=== PATIENT | female | born 1975 | race Caucasian/White ===

== ENCOUNTER 2016-08-08 15:27 | Emergency (ER) | payer MEDICAID, OTHER ==
[2016-08-08] MEDS ORDERED: NS 1,000 ML IV ONE ×2 (16:07→23:34)
--- NOTE | 2016-08-08 16:10 | EDPHY ---
H & P Stated Complaint: Suicidal ideation. Source: Patient Exam Limitations: No limitations - Personal History LMP (Females 10-55): 1-7 Days Ago Current Tetanus Diphtheria and Acellular Pertussis (TDAP): No - Medical/Surgical History Hx Asthma: No Hx Chronic Respiratory Disease: No Hx Diabetes: No Hx Cardiac Disease: No Hx Renal Disease: Yes Hx Cirrhosis: No Hx Alcoholism: Yes Hx HIV/AIDS: No Hx Splenectomy or Spleen Trauma: No Other PMH: HTN , KIDNEY STONES AND PYLO - Social History Smoking Status: Heavy smoker Time Seen by Provider: 08/08/16 16:07 HPI/ROS: HPI: 41-year-old transient female presents to emergency department brought in on M1 hold by Michelle GALE with chief concern suicidal ideation and alcohol withdrawal. Last drink 11 o'clock this morning. States "I am going to hang myself." Reports previous suicide attempts. Reports auditory hallucination. Denies visual hallucination. Denies homicidal ideation. Denies fever, chills, head trauma, URI symptoms, shortness of breath, chest pain, abdominal pain, nausea, vomiting, diarrhea. Used opiates and meth 5 days ago. Prescribed Suboxone but has not yet filled. Past medical history notable for bipolar 2, suicide attempt, polysubstance abuse, pyelonephritis, kidney stones, hypertension. Home medications include Zestril 40 mg daily. Reports a history of alcohol withdrawal seizures. ROS:10 point review of systems is negative other than as stated in HPI (Catherine Thornton) - Social History Additional Social History: Transient (Catherine Thornton) - Physical Exam Exam: Vital signs reviewed by me General: Awake, alert, calm, cooperative. No acute distress. Head: Normalocephalic. Atraumatic. EENT: PERRLA. EOMI. No pallor or injection. Anicteric. No nystagmus. No injection. TMs intact bilaterally with normal landmarks. No rhinnorhea, nasal passages clear. Oropharynx without redness, exudates, or lesions. Tonsils 2+ bilaterally, no exudates. Neck: Supple, nontender. No lymphadenopathy. Full range of motion. No meningismus. Respiratory: Breathing unlabored. Breath sounds equal bilaterally and clear to auscultation. No adventitious sounds. CV: Chest nontender, atraumatic. Heart rate regular. No murmur, distal pulses 2+ bilaterally. Brisk cap refill all extremities. GI: Abdomen soft, nontender. Bowel sounds normoactive and positive x4 quadrants. : No suprapubic tenderness. No CVA or flank tenderness. Neuro: Alert. Oriented x 3. Speech clear. Nonfocal cranial nerves throughout. Sensation intact all extremities. No tongue fasciculations. Positive hand tremors. Skin: Skin warm, dry, intact. No rashes, abrasions, or lacerations. Skin turgor normal. Extremities: Full range of motion in all 4 extremities. Strength 5+ all extremities. Mental status: Disheveled, fidgety, agitated (Brown,Catherine K) Constitutional: Initial Vital Signs Temperature (C) 36.7 C 08/08/16 15:35 Heart Rate 102 H 08/08/16 15:35 Respiratory Rate 16 08/08/16 15:35 Blood Pressure 140/108 H 08/08/16 15:35 O2 Sat (%) 96 08/08/16 15:35 O2 Delivery Mode Room Air Allergies/Adverse Reactions: NSAIDS (Non-Steroidal Anti-Inflamma Allergy (Verified 03/31/16 03:13) Home Medications: Medication Instructions Recorded Lisinopril [Zestril 40 mg (*)] 40 mg PO DAILY 03/31/16 Buprenorphine HCl/Naloxone HCl 3 each SL DAILY 08/08/16 [Suboxone 2 mg-0.5 mg Sl Film] lamoTRIgine [LamICTAL] 25 mg PO HS 08/10/16 traZODone [traZODONE 100MG (*)] 100 mg PO HS 08/10/16 Medical Decision Making ED Course/Re-evaluation: 1610:41-year-old female presents to emergency department on M1 hold by [facility] for suicidal ideation alcohol withdrawal. Last drink 11 o'clock today. [place] presently 14. Patient confirms previous alcohol withdrawal seizures. Confirms previous inpatient hospitalization at [facility] for detox as well as for suicidal ideation in other states. IV started. Normal saline hung. 1 mg IV Ativan ordered. Labs and urine are pending. [facility] protocol ordered. Patient given 40 mg lisinopril as this is her daily medication and she has not taken it today. 1730: White count 5460. CO2 18. AG 20. Glucose 60. Beta HCG negative. ETOH 367. Patient is alert and oriented. [facility] presently 8. Patient sitting in bed comfortably eating. 1820: Care of this patient transferred to my colleague Dr. Tayo Tirado. (Catherine Thornton) 9:15 p.m. blood alcohol 157 (Tayo Tirado) [id number]: I did see and evaluate this patient multiple times this evening she was tachycardic and her tachycardia is improved with IV Ativan multiple doses. She did receive total 4 mg overnight. She did receive also 1 L normal saline fluid. She feels much better. Her tachycardia has come down. On hand extension she has no significant tremors, she is not nauseous she is not vomiting she is not diaphoretic she does not have any tongue fasciculations. She will need to be watched further for possible alcohol withdrawal. She will need to be on CIWA, Closely monitored. Nursing staff updated and patient signed over to Dr. Rasmussen at 7am. This patient also received 25 mg p.o. Librium. 0554AM: 08/10/16: No acute events overnight. Patient resting. Re-evaluated this time, cooperative. Still pending placement. Patient signed over to Dr. Rasmussen at 7am. (Roderick Russo) Differential Diagnosis: Differential includes but is not limited to functional and major depression, situational depression, medication side-effect, anxiety, schizophrenia, bipolar , drug or alcohol related, acute psychosis, metabolic derangement, infection ( Catherine Thornton) Other Provider: 3:00 p.m. patient's care transferred to tx. Patient has been medically cleared prior to my arrival and is on an M1 hold waiting placement for suicidal ideations. She has a history of alcoholism and is currently going through withdrawals. She has been treated appropriately with benzodiazepines. She has been evaluated by Mental Health and we are currently awaiting psychiatric placement. 6:45 p.m. the patient is again having mild tremors. Will treat her for Ativan and Librium. Otherwise her symptoms have been well controlled. We continue to await placement. 10:00 p.m. the patient is sleeping comfortably. No sign of withdrawal symptoms. I will transfer care to Dr. Roderick Russo shift change. (Ayush Trivedi) I assumed care of patient at 0700. At 0900, was informed by Mental Health that they are looking for placement and that patient should remain on M1 hold. ( Tomi Rasmussen) Care Turn Over: Care to Dr. Russo at 2300 (Tayo Tirado) At 1250, mental health informed me that their evaluation is complete and they recommend the hold be lifted and patient be cabbed back to the care of her supportive family in [place]. (Tomi Rasmussen) - Data Points Laboratory Results: Laboratory Results 08/08/16 16:15 08/08/16 16:15 Medications Given: Discontinued Medications Chlordiazepoxide HCl (Librium) 25 mg PO EDNOW ONE Stop: 08/09/16 04:27 Last Admin: 08/09/16 04:36 Dose: 25 mg Chlordiazepoxide HCl (Librium) 25 mg PO EDNOW ONE Stop: 08/09/16 09:49 Last Admin: 08/09/16 09:53 Dose: 25 mg Chlordiazepoxide HCl (Librium) 25 mg PO EDNOW ONE Stop: 08/09/16 14:52 Last Admin: 08/09/16 14:57 Dose: 25 mg Chlordiazepoxide HCl (Librium) 25 mg PO EDNOW ONE Stop: 08/09/16 18:53 Last Admin: 08/09/16 19:07 Dose: 25 mg Chlordiazepoxide HCl (Librium) 25 mg PO EDNOW ONE Stop: 08/10/16 08:04 Last Admin: 08/10/16 08:21 Dose: 25 mg Chlordiazepoxide HCl (Librium) 25 mg PO EDNOW ONE Stop: 08/10/16 11:41 Last Admin: 08/10/16 11:43 Dose: 25 mg Sodium Chloride (Ns) 1,000 mls @ 0 mls/hr IV EDNOW ONE PRN Reason: Wide Open Stop: 08/08/16 16:08 Last Admin: 08/08/16 16:10 Dose: 1,000 mls Sodium Chloride (Ns) 1,000 mls @ 0 mls/hr IV ONCE ONE PRN Reason: Wide Open Stop: 08/08/16 23:35 Last Admin: 08/08/16 23:52 Dose: 1,000 mls Lisinopril (Zestril) 40 mg PO EDNOW ONE Stop: 08/08/16 16:14 Last Admin: 08/08/16 18:16 Dose: 40 mg Lisinopril (Zestril) 40 mg PO EDNOW ONE Stop: 08/09/16 12:42 Last Admin: 08/09/16 13:05 Dose: 40 mg Lisinopril (Zestril) 40 mg PO EDNOW ONE Stop: 08/10/16 08:25 Last Admin: 08/10/16 08:28 Dose: 40 mg Lorazepam (Ativan Injection) 1 mg IVP EDNOW ONE Stop: 08/08/16 16:13 Last Admin: 08/08/16 18:16 Dose: 1 mg Lorazepam (Ativan Injection) 1 mg IVP EDNOW ONE Stop: 08/08/16 23:35 Last Admin: 08/08/16 23:52 Dose: 1 mg Lorazepam (Ativan Injection) 2 mg IVP EDNOW ONE Stop: 08/09/16 03:48 Last Admin: 08/09/16 04:03 Dose: 2 mg Lorazepam (Ativan) 1 mg PO EDNOW ONE Stop: 08/09/16 09:49 Last Admin: 08/09/16 09:53 Dose: 1 mg Lorazepam (Ativan) 1 mg PO EDNOW ONE Stop: 08/09/16 14:52 Last Admin: 08/09/16 14:58 Dose: 1 mg Lorazepam (Ativan) 1 mg PO EDNOW ONE Stop: 08/09/16 18:53 Last Admin: 08/09/16 19:07 Dose: 1 mg Departure - Departure Disposition: Home, Routine, Self-Care Clinical Impression: Suicide ideation Alcohol withdrawal Qualifiers: Complication of substance-induced condition: uncomplicated Qualified Code(s): F10.230 - Alcohol dependence with withdrawal, uncomplicated Condition: Good Instructions: Suicide Prevention for Adults (ED) Additional Instructions: Follow-up with your mental health provider as directed. Return to the ED for thoughts of self-harm, racing thoughts or other concerns. Referrals: NONE *PRIMARY CARE P,. [Primary Care Provider] - As per Instructions
[2016-08-08] MEDS ORDERED: LORazepam 2 MG/ML INJ IVP ONE ×2 (16:12→23:34)
[2016-08-08] MEDS ORDERED: LISINOPRIL 20 MG TAB PO ONE (16:13)
[2016-08-08 16:25] LABS: % IMMATURE GRANULYOCYTES 0.2 % (0.0-1.1); ABSOLUTE IMMATURE GRANULOCYTES 0.01 10^3/uL (0.00-0.10); ADD DIFF? NO; ADD MORPH? NO; ADD SCAN? NO; ATYPICAL LYMPHOCYTE FLAG 0 (0-99); FRAGMENT RBC FLAG 20 (0-99); HEMATOCRIT 36.8 % (38.0-47.0); HEMOGLOBIN 11.6 g/dL (12.6-16.3); LEFT SHIFT FLG 0 (0-99); LIPEMIA HEMOLYSIS FLAG 80 (0-99); MEAN CELL HEMOGLOBIN 25.4 pg (27.9-34.1); MEAN CELL HEMOGLOBIN CONCENTR. 31.5 g/dL (32.4-36.7); MEAN CELL VOLUME 80.5 fL (81.5-99.8); MEAN PLATELET VOLUME 8.8 fL (8.7-11.7); PLATELET CLUMPS FLAG 10 (0-99); PLATELET COUNT 378 10^3/uL (150-400); RED BLOOD CELL COUNT 4.57 10^6/uL (4.18-5.33); RED CELL DISTRIBUTION WIDTH 19.5 % (11.5-15.2)
[2016-08-08 16:44] LABS: ANION GAP 20 mEq/L (8-16); CALCIUM 8.8 mg/dL (8.5-10.4); CARBON DIOXIDE 18 mEq/l (22-31); CHLORIDE 105 mEq/L (97-110); CREATININE 0.7 mg/dL (0.6-1.0); GLOMERULAR FILTRATION RATE > 60; GLUCOSE 60 mg/dL (70-100); POTASSIUM 4.3 mEq/L (3.5-5.2); SODIUM 143 mEq/L (134-144)
[2016-08-08 17:07] LABS: ETHANOL SERUM 367 mg/dL (0-10)
[2016-08-08] MEDS ORDERED: LORazepam 2 MG/ML INJ ONE (23:35)
[2016-08-09] MEDS ORDERED: LORazepam 2 MG/ML INJ IVP ONE (03:47)
[2016-08-09] MEDS ORDERED: chlordiazePOXIDE 25 MG CAP PO ONE ×4 (04:26→18:52)
[2016-08-09] MEDS ORDERED: LORazepam 1 MG TAB PO ONE ×3 (09:48→18:52)
[2016-08-09] MEDS ORDERED: LISINOPRIL 20 MG TAB PO ONE (12:41)
[2016-08-10] MEDS ORDERED: chlordiazePOXIDE 25 MG CAP PO ONE ×2 (08:03→11:40)
[2016-08-10] MEDS ORDERED: LISINOPRIL 20 MG TAB PO ONE (08:24)
[2016-08-10] MEDS ORDERED: chlordiazePOXIDE 25 MG CAP ONE (11:41)
[2016-08-10 13:37] VITALS: BP 148/95; PULSE 94; RESP 17; TEMP 98.2; O2SAT 95
== END 2016-08-10 13:36 | disposition home or self-care (01) ==
DX: R45.851 Suicidal ideations (principal); F10.230 Alcohol dependence with withdrawal, uncomplicated; I10 Essential (primary) hypertension; F17.200 Nicotine dependence, unspecified, uncomplicated
CPT/HCPCS: 80305; 96374; G0480; J2060

== ENCOUNTER 2016-09-08 15:21 | Emergency (ER) | payer MEDICAID ==
[~2016-09-08 15:21] MED LIST: LISINOPRIL 40 MG TAB PO SCH
--- NOTE | 2016-09-08 15:29 | EDPHY ---
H & P - Medical/Surgical History Hx Asthma: No Hx Chronic Respiratory Disease: No Hx Diabetes: No Hx Cardiac Disease: No Hx Renal Disease: Yes Hx Cirrhosis: No Hx Alcoholism: Yes Hx HIV/AIDS: No Hx Splenectomy or Spleen Trauma: No Other PMH: HTN , KIDNEY STONES AND PYLO - Social History Smoking Status: Heavy smoker Constitutional: Initial Vital Signs Temperature (C) 36.8 C 09/08/16 15:30 Heart Rate 87 09/08/16 15:30 Respiratory Rate 18 09/08/16 15:30 Blood Pressure 164/105 H 09/08/16 15:30 O2 Sat (%) 95 09/08/16 15:30 O2 Delivery Mode Room Air Allergies/Adverse Reactions: aripiprazole [From Abilify] Allergy (Verified 09/08/16 15:33) hydrocodone Allergy (Verified 09/08/16 15:33) NSAIDS (Non-Steroidal Anti-Inflamma Allergy (Verified 09/08/16 15:33) Home Medications: Medication Instructions Recorded Lisinopril [Zestril 40 mg (*)] 40 mg PO DAILY 03/31/16 Lisinopril [Zestril 40 mg (*)] 40 mg PO DAILY #4 tab 09/08/16 SUBOXONE 2 MG-0.5 MG TABLET 09/08/16 Medical Decision Making ED Course/Re-evaluation: CHIEF COMPLAINT: Dizziness, headache. HISTORY OF PRESENT ILLNESS: The patient is a 41-year-old female with a history of hypertension who presents via EMS for 3 days of headache, dizziness, and pedal edema. She took her blood pressure just prior to arrival and noted it high so EMS was notified. She stopped taking her Lisinopril after she started Suboxone and has been compliant with all of her recent doses of this. She admits associated intermittent chest pressure. These are the symptoms she usually gets when her blood pressure gets high. She denies abdominal pain, vomiting, diarrhea, or other complaints. REVIEW OF SYSTEMS: A 10 point review of systems was performed and is negative with the exception of the elements mentioned in the history of present illness. PHYSICAL EXAM: HR, BP, O2 Sat, RR. Temp noted General Appearance: Alert, well hydrated, appropriate, and non-toxic appearing. Head: Atraumatic without scalp tenderness or obvious injury Eyes: Pupils equal, round, reactive to light and accommodation, EOMI, no trauma , no injection. Pinpoint pupils. Ears: Clear bilaterally, no perforation, normal landmarks Nose: Atraumatic, no rhinorrhea, clear. Throat: There is no erythema or exudates, no lesions, normal tonsils, mucus membranes moist. Neck: Supple, 2+ carotid upstroke, nontender, no lymphadenopathy. Respiratory: No retractions, no distress, no wheezes, and no accessory muscle use. Lungs are clear to auscultation bilaterally. Cardiovascular: Regular rate and rhythm, no murmurs, rubs, or gallops. Bilateral carotid, radial, dorsalis pedis, and posterior tibial pulses intact. Good capillary refill all extremities. Gastrointestinal: Abdomen is soft, nontender, non-distended, no masses, no rebound, no guarding, no peritoneal signs. Musculoskeletal: Normal active ROM of all extremities, atraumatic. Neurological: Alert, appropriate, and interactive. The patient has normal DTRs and non-focal cranial nerves, motor, sensory, and cerebellar exam. Skin: No rashes, good turgor, no nodules on palpation. Past medical history: Hypertension, kidney stones, pyelonephritis. Past surgical history: Denies. Social history: . DIAGNOSTICS/PROCEDURES/CRITICAL CARE TIME: The 12 lead EKG was interpreted by myself. See hard copy and/or "tracemaster" electronic copy for interpretation. Sinus rhythm. No ischemic changes. DIFFERENTIAL DIAGNOSIS: The differential diagnosis for the patient's dizziness included but was not limited to peripheral and central causes of vertigo, orthostatic causes including dehydration, cardiogenic and neurogenic causes, and blood loss. MEDICAL DECISION MAKIN-year-old female with a history of hypertension presents with headache, chest pressure, and dizziness. These symptoms are her usual high blood pressure symptoms. She usually takes 40mg Lisinopril but was told to stop because it was lowering her blood pressure too much in combination with the Suboxone. Her blood pressure is 168/102. She will be given 40mg PO Lisinopril. EKG ordered due her complaint of chest pressure. We will check lab work including kidney function and electrolytes. An IV was established. ISTAT is normal. Lab work is unremarkable. She has no signs of end-organ damage. There is no hypertensive urgency or hypertensive emergency. EKG shows no ischemic changes. I feel she is safe for discharge at this time. I will prescribe her enough Lisinopril to get back to [place] to take her normal Lisinopril. She is comfortable with this plan. She has been provided a [facility] referral if she needs a primary care provider. - Data Points Laboratory Results: 09/08/16 15:45 POC Hgb 13.6 gm/dL gm/dL (12.3-15.9) POC Hct 40 % % (35.5-47.5) POC Sodium 143 mEq/L mEq/L (134-144) POC Potassium 4.0 mEq/L mEq/L (3.3-5.0) POC Chloride 102 mEq/L mEq/L (96-108) POC BUN 11 mg/dL mg/dL (7-23) POC Creatinine 0.8 mg/dL mg/dL (0.6-1.2) POC Glucose 88 mg/dL mg/dL (70-100) Medications Given: Discontinued Medications Lisinopril (Zestril) 40 mg PO EDNOW ONE Stop: 09/08/16 15:34 Last Admin: 09/08/16 15:53 Dose: 40 mg Point of Care Test Results: 09/08/16 15:45 POC Sodium 143 POC Potassium 4.0 POC Chloride 102 POC BUN 11 POC Creatinine 0.8 POC Glucose 88 Departure - Departure Disposition: Home, Routine, Self-Care Clinical Impression: Hypertension Qualifiers: Hypertension type: unspecified secondary hypertension Qualified Code(s): I15.9 - Secondary hypertension, unspecified Condition: Good Instructions: Hypertension (ED) Additional Instructions: Take your Lisinopril as prescribed. Follow up with your primary care provider for reevaluation. If you need a primary care provider you have been given the telephone number of [facility]. Return for any serious worsening of condition. Referrals: [facility],. [Clinic] - As per Instructions Prescriptions: Lisinopril [Zestril 40 mg (*)] 40 mg PO DAILY #4 tab Report Scribed for: Wili Hernandez Report Scribed by: Bryan Mckeon Date of Report: 09/08/16 Time of Report: 15:31
[2016-09-08 15:33] VITALS: TEMP 98.2
[2016-09-08] MEDS ORDERED: LISINOPRIL 20 MG TAB PO ONE (15:33)
--- NOTE | 2016-09-08 15:51 | CPEKG ---
Heart Rate: 76 RR Interval: 789 P-R Interval: 152 QRSD Interval: 76 QT Interval: 396 QTC Interval: 446 P [place]: 60 QRS [place]: 75 T Wave [place]: 56 EKG Severity - NORMAL ECG - EKG Impression: SINUS RHYTHM Electronically Signed By: Rupert Montez 08-Sep-2016 18:45:07
[2016-09-08 16:21] VITALS: BP 181/86; PULSE 75; RESP 16; O2SAT 94
== END 2016-09-08 16:19 | disposition home or self-care (01) ==
LOC: EDUNIT#
DX: I10 Essential (primary) hypertension (principal); F17.200 Nicotine dependence, unspecified, uncomplicated
CPT/HCPCS: 82947-QW

== ENCOUNTER 2016-09-12 14:04 | Emergency (ER) | payer MEDICAID ==
--- NOTE | 2016-09-12 14:09 | EDPHY ---
H & P Time Seen by Provider: 09/12/16 14:09 - Medical/Surgical History Hx Asthma: No Hx Chronic Respiratory Disease: No Hx Diabetes: No Hx Cardiac Disease: No Hx Renal Disease: Yes Hx Cirrhosis: No Hx Alcoholism: Yes Hx HIV/AIDS: No Hx Splenectomy or Spleen Trauma: No Other PMH: HTN , KIDNEY STONES AND PYLO - Social History Smoking Status: Heavy smoker Constitutional: Initial Vital Signs Temperature (C) 36.6 C 09/12/16 14:13 Heart Rate 87 09/12/16 14:13 Respiratory Rate 16 09/12/16 14:13 Blood Pressure 120/80 09/12/16 14:13 O2 Sat (%) 90 L 09/12/16 14:13 O2 Delivery Mode Room Air Allergies/Adverse Reactions: aripiprazole [From Abilify] Allergy (Verified 09/08/16 15:33) hydrocodone Allergy (Verified 09/08/16 15:33) NSAIDS (Non-Steroidal Anti-Inflamma Allergy (Verified 09/08/16 15:33) Home Medications: Medication Instructions Recorded Lisinopril [Zestril 40 mg (*)] 40 mg PO DAILY 03/31/16 Lisinopril [Zestril 40 mg (*)] 40 mg PO DAILY #4 tab 09/08/16 SUBOXONE 2 MG-0.5 MG TABLET 09/08/16 Medical Decision Making ED Course/Re-evaluation: CHIEF COMPLAINT: Wants Suboxone. HISTORY OF PRESENT ILLNESS: The patient is a 41-year-old female who presents because she is out of Suboxone. She denies medical complaints at this time. REVIEW OF SYSTEMS: A 10 point review of systems was performed and is negative with the exception of the elements mentioned in the history of present illness. PHYSICAL EXAM: HR, BP, O2 Sat, RR. Temp noted General Appearance: Alert, well hydrated, appropriate, and non-toxic appearing. Head: Atraumatic without scalp tenderness or obvious injury Eyes: Pupils equal, round, reactive to light and accommodation, EOMI, no trauma , no injection. Ears: Clear bilaterally, no perforation, normal landmarks Nose: Atraumatic, no rhinorrhea, clear. Throat: There is no erythema or exudates, no lesions, normal tonsils, mucus membranes moist. Neck: Supple, 2+ carotid upstroke, nontender, no lymphadenopathy. Respiratory: No retractions, no distress, no wheezes, and no accessory muscle use. Lungs are clear to auscultation bilaterally. Cardiovascular: Regular rate and rhythm, no murmurs, rubs, or gallops. Bilateral carotid, radial, dorsalis pedis, and posterior tibial pulses intact. Good capillary refill all extremities. Gastrointestinal: Abdomen is soft, nontender, non-distended, no masses, no rebound, no guarding, no peritoneal signs. Musculoskeletal: Normal active ROM of all extremities, atraumatic. Neurological: Alert, appropriate, and interactive. The patient has normal DTRs and non-focal cranial nerves, motor, sensory, and cerebellar exam. Skin: No rashes, good turgor, no nodules on palpation. Past medical history: Hypertension, kidney stones, pyelonephritis. Past surgical history: Denies. Family history: N/A. Social history: Substance abuse. MEDICAL DECISION MAKIN-year-old female presents requesting Suboxone because she is out. She usually gets it from [facility] on Friday but missed her appointment yesterday. I am not able to prescribe her this medications. I have requested that Case Management consult with her. Departure - Departure Disposition: Home, Routine, Self-Care Clinical Impression: Medication refill Condition: Good Instructions: Medicine Refill (ED) Additional Instructions: Follow up at the [facility]. [phone]. We have scheduled an appointment for you at the [facility] for Friday, September 18 @ 2 PM. Return for any serious worsening of condition. Referrals: NONE *PRIMARY CARE P,. [Primary Care Provider] - As per Instructions Report Scribed for: Wili Hernandez Report Scribed by: Bryan Mckeon Date of Report: 09/12/16 Time of Report: 14:18
[2016-09-12 14:16] VITALS: BP 120/80; PULSE 87; RESP 16; TEMP 97.9; O2SAT 90
== END 2016-09-12 15:05 | disposition home or self-care (01) ==
LOC: EDUNIT#
DX: Z76.0 Encounter for issue of repeat prescription (principal); I10 Essential (primary) hypertension; F17.200 Nicotine dependence, unspecified, uncomplicated

== ENCOUNTER 2016-10-07 14:55 | Emergency (ER) | payer MEDICAID ==
--- NOTE | 2016-10-07 15:14 | EDPHY ---
H & P Time Seen by Provider: 10/07/16 15:08 HPI/ROS: 41-year-old female known history of alcohol abuse, brought by ambulance when found sleeping in the grass. She denies any complaints whatsoever. She admits to drinking alcohol. Review of systems General no fever no chills no weakness HEENT no eye pain no eye discharge. No eye redness, no sore throat Respiratory no cough, no shortness of breath Cardiac no chest pain, no peripheral edema GI no abdominal pain, no diarrhea, no constipation, no nausea, no vomiting no flank pain, no hematuria, no dysuria Musculoskeletal no myalgias, no joint pain Heme no easy bruising, no easy bleeding Endo no polyuria, no polydipsia Skin no rashes, no pruritus Neuro no syncope, no dizziness, no headaches Psych is no suicidal ideation, no homicidal ideation Past Medical/Surgical History: Alcohol abuse, narcotic abuse Social History: Substance Abuse Smoking Status: Heavy smoker Physical Exam: 41-year-old female alert and oriented, smells of alcohol Atraumatic normocephalic Extraocular muscles intact, anicteric Oropharynx no erythema no exudate no drooling Neck supple Lungs clear to auscultation bilaterally Heart regular rate and rhythm Abdomen nondistended bowel sounds present Extremities no cyanosis clubbing edema Skin no evidence of acute trauma, no rash Constitutional: Initial Vital Signs Heart Rate 92 10/07/16 14:55 Respiratory Rate 16 10/07/16 14:55 Blood Pressure 117/84 H 10/07/16 14:55 O2 Sat (%) 97 10/07/16 14:55 O2 Delivery Mode Room Air Allergies/Adverse Reactions: aripiprazole [From Abilify] Allergy (Verified 10/07/16 15:17) hydrocodone Allergy (Verified 10/07/16 15:17) NSAIDS (Non-Steroidal Anti-Inflamma Allergy (Verified 10/07/16 15:17) Home Medications: Medication Instructions Recorded Lisinopril [Zestril 40 mg (*)] 40 mg PO DAILY #4 tab 09/08/16 SUBOXONE 2 MG-0.5 MG TABLET 09/08/16 Medical Decision Making ED Course/Re-evaluation: Patient seen and evaluated for alcohol intoxication Patient drinks heavily on a daily basis. Patient provided food, allowed to sleep for several hours, upon awakening appears clinically sober, able to walk without difficulty able to care for herself speaking clearly. Impression Acute on chronic alcohol intoxication Plan Discharge when clinically sober. Departure - Departure Disposition: Home, Routine, Self-Care Clinical Impression: Alcoholic intoxication, Alcohol dependence Condition: Good Instructions: Abuse of Alcohol (ED) Referrals: Unknown,Unknown [Primary Care Provider] - As per Instructions
[2016-10-07 15:26] VITALS: RESP 16; O2SAT 97
[2016-10-07 18:22] VITALS: BP 154/84; PULSE 98; TEMP 98.2
== END 2016-10-07 17:47 | disposition home or self-care (01) ==
LOC: EDUNIT# → CED 14:55 → EDBD 14:55 → CED 17:47
DX: F10.229 Alcohol dependence with intoxication, unspecified (principal); F17.200 Nicotine dependence, unspecified, uncomplicated

== ENCOUNTER 2016-10-09 08:49 | Emergency (ER) | payer MEDICAID ==
[~2016-10-09 08:49] MED LIST changes: -LISINOPRIL 40 MG TAB PO SCH; +chlordiazePOXIDE 25 MG CAP PO SCH
[2016-10-09 08:58] VITALS: PULSE 92; RESP 18
--- NOTE | 2016-10-09 09:06 | EDPHY ---
H & P Stated Complaint: intoxication - Personal History LMP (Females 10-55): Unknown Current Tetanus/Diphtheria Vaccine: Unsure Current Tetanus Diphtheria and Acellular Pertussis (TDAP): Unsure - Medical/Surgical History Hx Asthma: No Hx Chronic Respiratory Disease: No Hx Diabetes: No Hx Cardiac Disease: No Hx Renal Disease: Yes Hx Cirrhosis: No Hx Alcoholism: Yes Hx HIV/AIDS: No Hx Splenectomy or Spleen Trauma: No Other PMH: HTN , KIDNEY STONES AND PYLO,opiate addiction,pancreatitis - Social History Smoking Status: Heavy smoker Time Seen by Provider: 10/09/16 08:56 HPI/ROS: Chief complaint: Alcohol intoxication History of present illness: 41-year-old female brought to the emergency department by police for medical clearance to go to the [facility]. Patient has a known history of alcohol abuse. Apparently she has been drinking today and her boyfriend called police out of concern for her safety. On my evaluation patient denies any concerns. She does admit to drinking. Review of systems: A 10 point review of systems was obtained and other than described above was negative (Salazar Varela) - Physical Exam Exam: General Appearance: Alert, nontoxic, odor of alcohol on breath. Eyes: Pupils equal and round no pallor or injection. ENT, Mouth: Mucous membranes moist. Respiratory: There are no retractions, lungs are clear to auscultation. Cardiovascular: Regular rate and rhythm. Gastrointestinal: Abdomen is soft and nontender, no masses, bowel sounds normal. Neurological: Alert. Strength and sensation intact and symmetrical. Skin: Warm and dry, no rashes. Musculoskeletal: Neck is supple nontender. Extremities are symmetrical, full range of motion. Psychiatric: There is no agitation. Patient is cooperative. (Salazar Varela) Constitutional: Initial Vital Signs Temperature (C) 36.9 C 10/09/16 08:56 Heart Rate 92 10/09/16 08:56 Respiratory Rate 18 10/09/16 08:56 Blood Pressure 150/108 H 10/09/16 08:56 O2 Sat (%) 94 10/09/16 08:56 O2 Delivery Mode Room Air Allergies/Adverse Reactions: aripiprazole [From Abilify] Allergy (Verified 10/07/16 15:17) hydrocodone Allergy (Verified 10/07/16 15:17) NSAIDS (Non-Steroidal Anti-Inflamma Allergy (Verified 10/07/16 15:17) Home Medications: Medication Instructions Recorded Lisinopril [Zestril 40 mg (*)] 40 mg PO DAILY #4 tab 09/08/16 SUBOXONE 2 MG-0.5 MG TABLET 09/08/16 chlordiazePOXIDE [Librium 25 mg 25 mg PO QID #6 cap 10/09/16 (*)] Medical Decision Making ED Course/Re-evaluation: The patient was evaluated and managed by the physician's prosthetic assistant. My cosignature indicates that I reviewed the chart and I agree with the findings and plan of care as documented. I am the secondary supervising physician. ( Kamla Camacho) Patient seen under the supervision of secondary supervising physician Dr. Kamla Camacho. Patient is brought to the emergency department by police for medical clearance to go to the [facility]. Patient does admit to drinking alcohol today. She is nontoxic. Afebrile and vital signs are stable. I am able to hold a conversation with her. She has no complaints. Unfortunately she is on Suboxone and cannot go to the [facility] because of this. She is clinically sober. She is observed in the emergency room for a number of hours without any problems. She is discharged. Return precautions are given. (Salazar Varela) Differential Diagnosis: Included but not limited to alcohol intoxication, alcohol withdrawal, polysubstance abuse (Salazar Varela) - Data Points Medications Given: Discontinued Medications Chlordiazepoxide (Librium 25 Mg Prepack#6) 1 btl SAY EDNOW ONE Stop: 10/09/16 09:26 Last Admin: 10/09/16 11:10 Dose: Not Given Departure - Departure Disposition: Home, Routine, Self-Care Clinical Impression: Alcoholic intoxication Qualifiers: Complication of substance-induced condition: uncomplicated Qualified Code(s): F10.120 - Alcohol abuse with intoxication, uncomplicated Condition: Good Instructions: Chlordiazepoxide/Clidinium (By mouth), Alcohol Intoxication (ED) Additional Instructions: Follow-up with your primary care doctor for recheck If symptoms worsen or new symptoms develop return to the emergency room for recheck Referrals: NONE *PRIMARY CARE P,. [Primary Care Provider] - As per Instructions Prescriptions: chlordiazePOXIDE [Librium 25 mg (*)] 25 mg PO QID #6 cap
[2016-10-09] MEDS ORDERED: CHLORDIAZEPOXIDE 25MG PREPK#6 BTL TAKEHOME ONE (09:25)
[2016-10-09 11:16] VITALS: BP 110/68; TEMP 98.2; O2SAT 98
== END 2016-10-09 11:11 | disposition home or self-care (01) ==
DX: F10.120 Alcohol abuse with intoxication, uncomplicated (principal); I10 Essential (primary) hypertension; F17.200 Nicotine dependence, unspecified, uncomplicated

== ENCOUNTER 2016-10-09 19:40 | Emergency (ER) | payer MEDICAID ==
--- NOTE | 2016-10-09 19:47 | EDPHY ---
H & P Time Seen by Provider: 10/09/16 19:41 HPI/ROS: CHIEF COMPLAINT: Alcohol intoxication HISTORY OF PRESENT ILLNESS: 41-year-old female presents to the emergency department with [place] safety instruction police officer with acute alcohol intoxication. Patient states that she has an alcoholic and drank a lot of alcohol today. Patient also takes Suboxone 8 mg twice daily. The safety instruction police officer was called by her friend who was also intoxicated stating that the patient was unable to walk. No reported trauma or fall. Patient denies headache. Denies chest pain or difficulty breathing. Denies abdominal pain. Patient was apparently unable to [facility] because she did not have her Suboxone medication with her. Currently the patient has no physical complaints. REVIEW OF SYSTEMS: Constitutional: No fever, no chills. Eyes: No double or blurry vision. ENT: No sore throat. Respiratory: No cough, no shortness of breath. Cardiac: No chest pain. Gastrointestinal: No abdominal pain, vomiting or diarrhea. Genitourinary: No dysuria. Musculoskeletal: No neck or back pain. Skin: No rashes. Neurological: No headache. Past Medical/Surgical History: Alcoholism, pancreatitis Social History: Homeless Smoking Status: Heavy smoker Physical Exam: General Appearance: Alert, no distress. Smells strongly of alcohol. Eyes: Pupils equal and round. Extraocular motions are all intact. ENT: Mouth: Mucous membranes moist. Respiratory: No wheezing, rhonchi, or rales, lungs are clear to auscultation. Cardiovascular: Regular rate and rhythm. Gastrointestinal: Abdomen is soft and nontender, no masses, no rebound or guarding, bowel sounds normal. Neurological: Alert and oriented x 3, cranial nerves II through XII grossly intact Skin: Warm and dry, no rashes. Musculoskeletal: Nontender to palpate along the cervical, thoracic or lumbar spine. Neck is supple. Extremities: Full range of motion and no peripheral edema. Psychiatric: Patient is oriented X 3, there is no agitation. Constitutional: Initial Vital Signs Temperature (C) 37 C 10/09/16 19:48 Heart Rate 100 10/09/16 19:48 Respiratory Rate 18 10/09/16 19:48 Blood Pressure 149/88 H 10/09/16 19:48 O2 Sat (%) 94 10/09/16 19:48 O2 Delivery Mode Room Air Allergies/Adverse Reactions: aripiprazole [From [employer]] Allergy (Verified 10/07/16 15:17) hydrocodone Allergy (Verified 10/07/16 15:17) NSAIDS (Non-Steroidal Anti-Inflamma Allergy (Verified 10/07/16 15:17) Home Medications: Medication Instructions Recorded Lisinopril [Zestril 40 mg (*)] 40 mg PO DAILY #4 tab 09/08/16 SUBOXONE 2 MG-0.5 MG TABLET 09/08/16 Medical Decision Making ED Course/Re-evaluation: 41-year-old female presents to the emergency department with acute alcohol intoxication. The patient was initially going to go to [facility] however because the patient did not have her Suboxone, she was unable to be admitted there. The patient was observed for several hours in the emergency department and upon discharge was clinically sober and was able to ambulate unassisted. She had no medical complaints. She is comfortable being discharged home. I did give her information regarding [facility]. Differential Diagnosis: Altered mental status including but not limited to hypoglycemia, infectious process, electrolyte abnormality, head injury and intoxicants. Departure - Departure Disposition: Home, Routine, Self-Care Clinical Impression: Alcoholic intoxication Qualifiers: Complication of substance-induced condition: uncomplicated Qualified Code(s): F10.120 - Alcohol abuse with intoxication, uncomplicated Condition: Good Instructions: Alcohol Intoxication (ED), Abuse of Alcohol (ED) Additional Instructions: You should not drink alcohol in excess. Please return to the emergency department if you have any concerns. Referrals: [facility] [Outside] - As per Instructions
[2016-10-09 19:49] VITALS: PULSE 100
[2016-10-09 22:16] VITALS: BP 159/100; RESP 16; TEMP 99; O2SAT 96
== END 2016-10-09 22:15 | disposition home or self-care (01) ==
DX: F10.120 Alcohol abuse with intoxication, uncomplicated (principal); F17.200 Nicotine dependence, unspecified, uncomplicated

== ENCOUNTER 2016-10-11 17:46 | Emergency (ER) | payer MEDICAID ==
[2016-10-11 18:01] VITALS: BP 173/121; PULSE 104; RESP 22; TEMP 98.2; O2SAT 93
--- NOTE | 2016-10-11 18:02 | EDPHY ---
H & P Stated Complaint: "withdrawal". wants pain meds for pancreatitis. Time Seen by Provider: 10/11/16 17:53 HPI/ROS: CHIEF COMPLAINT: Requesting narcotic medications for chronic abdominal pain HISTORY OF PRESENT ILLNESS: The patient presents to the ED by paramedics requesting narcotic pain medications for chronic abdominal pain. She reportedly is on Suboxone which she is not had for the past week. The patient continues to use alcohol on a daily basis. She currently does admit to using alcohol today. She denies vomiting, melena, fever, cough or additional acute complaints. The patient reports that she is not had regular follow-up with her chronic pain clinic. REVIEW OF SYSTEMS: A comprehensive 10 point review of systems is otherwise negative aside from elements mentioned in the history of present illness. Source: Patient, EMS - Personal History Current Tetanus/Diphtheria Vaccine: Yes Current Tetanus Diphtheria and Acellular Pertussis (TDAP): Yes - Medical/Surgical History Hx Asthma: No Hx Chronic Respiratory Disease: No Hx Diabetes: No Hx Cardiac Disease: No Hx Renal Disease: Yes Hx Cirrhosis: No Hx Alcoholism: Yes Hx HIV/AIDS: No Hx Splenectomy or Spleen Trauma: No Other PMH: HTN , KIDNEY STONES AND PYLO,opiate addiction,pancreatitis, h pylori , chronic pain, - Social History Smoking Status: Heavy smoker - Physical Exam Exam: General Appearance: Disheveled, no acute distress, alcohol on breath Eyes: Pupils equal and round no pallor or injection ENT, Mouth: Mucous membranes moist Respiratory: There are no retractions, lungs are clear to auscultation Cardiovascular: Regular rate and rhythm Gastrointestinal: Minimal epigastric pain, no rebound, no guarding Neurological: A&O, normal motor function, normal sensory exam, normal cranial nerves Skin: Warm and dry, no rashes Musculoskeletal: Neck is supple nontender Extremities: symmetrical, full range of motion Constitutional: Initial Vital Signs Temperature (C) 36.8 C 10/11/16 17:59 Heart Rate 104 H 10/11/16 17:59 Respiratory Rate 22 H 10/11/16 17:59 Blood Pressure 173/121 H 10/11/16 17:59 O2 Sat (%) 93 10/11/16 17:59 O2 Delivery Mode Room Air Allergies/Adverse Reactions: aripiprazole [From Abilify] Allergy (Verified 10/07/16 15:17) hydrocodone Allergy (Verified 10/07/16 15:17) NSAIDS (Non-Steroidal Anti-Inflamma Allergy (Verified 10/07/16 15:17) Home Medications: Medication Instructions Recorded Lisinopril [Zestril 40 mg (*)] 40 mg PO DAILY #4 tab 09/08/16 SUBOXONE 2 MG-0.5 MG TABLET 09/08/16 Medical Decision Making ED Course/Re-evaluation: I reviewed the patient's past medical records. The patient will not be given IV or oral narcotics given her history of alcohol abuse. Patient is encouraged to continue to work with her regular prescriber to get her chronic Suboxone. Given her history of pancreatitis, screening laboratory studies were sent. Patient has no evidence of pancreatitis. The patient is unable to go to the [facility] as she has been on Suboxone in the past week. The patient is safely ambulatory in the ED. Differential Diagnosis: Differential diagnosis considered includes pancreatitis, alcohol intoxication, gastritis, chronic pain syndrome - Data Points Laboratory Results: Laboratory Results 10/11/16 17:52 10/11/16 17:52 10/11/16 10/11/16 10/11/16 Unknown 17:52 17:52 WBC 5.90 10^3/uL 10^3/uL (3.80-9.50) RBC 4.76 10^6/uL 10^6/uL (4.18-5.33) Hgb 12.2 g/dL L g/dL (12.6-16.3) Hct 38.1 % % (38.0-47.0) MCV 80.0 fL L fL (81.5-99.8) MCH 25.6 pg L pg (27.9-34.1) MCHC 32.0 g/dL L g/dL (32.4-36.7) RDW 20.6 % H % (11.5-15.2) Plt Count 298 10^3/uL 10^3/uL (150-400) MPV 8.9 fL fL (8.7-11.7) Neut % (Auto) Not Reported Lymph % (Auto) Not Reported [place] % (Auto) Not Reported Eos % (Auto) Not Reported Baso % (Auto) Not Reported Nucleat RBC Rel Count 0.0 % % (0.0-0.2) Absolute Neuts (auto) Not Reported Absolute Lymphs (auto) Not Reported Absolute Monos (auto) Not Reported Absolute Eos (auto) Not Reported Absolute Basos (auto) Not Reported Absolute Nucleated RBC 0.00 10^3/uL 10^3/uL (0-0.01) Immature Gran % Not Reported Seg Neutrophils % 49 % % Band Neutrophils % 1 % % Lymphocytes % 35 % % Monocytes % 14 % % Basophils % 1 % % Immature Gran # Not Reported Absolute Seg Neuts 2.89 10^/uL 10^/uL (1.70-6.50) Absolute Band Neuts 0.06 10^3/uL 10^3/uL (0.00-0.70) Absolute Lymphocytes 2.07 10^3/uL 10^3/uL (1.00-3.00) Absolute Monocytes 0.83 10^3/uL H 10^3/uL (0.30-0.80) Absolute Basophils 0.06 10^3/uL 10^3/uL (0.02-0.10) Atypical Lymphocytes 1+ H Platelet Estimate ADEQUATE (ADEQ) Hypochromasia 2+ H Microcytic Cells 1+ H Oval Macrocytes 1+ H Sodium 148 mEq/L H mEq/L (134-144) Potassium 4.0 mEq/L mEq/L (3.5-5.2) Chloride 105 mEq/L mEq/L (97-110) Carbon Dioxide 23 mEq/l mEq/l (22-31) Anion Gap 20 mEq/L H mEq/L (8-16) BUN 14 mg/dL mg/dL (7-23) Creatinine 0.6 mg/dL mg/dL (0.6-1.0) Estimated GFR > 60 Glucose 106 mg/dL H mg/dL (70-100) Calcium 8.6 mg/dL mg/dL (8.5-10.4) Lipase 271.0 IU/L IU/L (23-300) Departure - Departure Disposition: Home, Routine, Self-Care Clinical Impression: Alcohol dependence Condition: Good Instructions: Alcohol Intoxication (ED) Additional Instructions: 1. If you remain off Suboxone for 2 weeks the [facility] would be willing to accept you. 2. Please follow up with your regular physician as scheduled. 3. We will be unable to provide you with any narcotic pain medications for your chronic pain in the emergency department. Referrals: [facility] [Outside] - As per Instructions
[2016-10-11 18:04] LABS: FRAGMENT RBC FLAG 20 (0-99); HEMATOCRIT 38.1 % (38.0-47.0); HEMOGLOBIN 12.2 g/dL (12.6-16.3); LEFT SHIFT FLG 0 (0-99); LIPEMIA HEMOLYSIS FLAG 80 (0-99); MEAN CELL HEMOGLOBIN 25.6 pg (27.9-34.1); MEAN PLATELET VOLUME 8.9 fL (8.7-11.7); PLATELET CLUMPS FLAG 0 (0-99); PLATELET COUNT 298 10^3/uL (150-400); RED BLOOD CELL COUNT 4.76 10^6/uL (4.18-5.33)
[2016-10-11 18:06] LABS: ADD DIFF? YES; ADD SCAN? NO; ATYPICAL LYMPHOCYTE FLAG 100 (0-99); RED CELL DISTRIBUTION WIDTH 20.6 % (11.5-15.2)
[2016-10-11 18:07] LABS: ADD MORPH? NO
[2016-10-11 18:09] LABS: ANION GAP 20 mEq/L (8-16); CALCIUM 8.6 mg/dL (8.5-10.4); CARBON DIOXIDE 23 mEq/l (22-31); CHLORIDE 105 mEq/L (97-110); CREATININE 0.6 mg/dL (0.6-1.0); GLOMERULAR FILTRATION RATE > 60; GLUCOSE 106 mg/dL (70-100); SODIUM 148 mEq/L (134-144)
[2016-10-11 18:31] LABS: MICROCYTES 1+; PLATELET ESTIMATE ADEQUATE (ADEQ)
[2016-10-11 18:32] LABS: HYPOCHROMIA 2+; MACROCYTES 1+
== END 2016-10-11 19:04 | disposition home or self-care (01) ==
LOC: EDUNIT#
DX: F10.20 Alcohol dependence, uncomplicated (principal); I10 Essential (primary) hypertension; F17.200 Nicotine dependence, unspecified, uncomplicated

== ENCOUNTER 2016-10-12 11:31 | Emergency (ER) | payer MEDICAID ==
--- NOTE | 2016-10-12 12:37 | EDPHY ---
H & P Smoking Status: Heavy smoker Time Seen by Provider: 10/12/16 12:03 HPI/ROS: CHIEF COMPLAINT: Suicidal ideation HISTORY OF PRESENT ILLNESS: This is a 41-year-old female brought into the emergency department via police department. Police department states they were called to the park where patient was yelling threatening to hang herself, agitated angry. Patient was seen here on 10/07, 10/09, and 10/11 for ETOH. Patient states "I felt like hanging myself a week ago but then I started drinking and those feelings went away". "I just want to stop drinking, I feels so depressed I just want to kill myself". Patient states it has been 2 weeks since she has been off Suboxone, used methamphetamine 3 days ago denies any other drugs REVIEW OF SYSTEMS: Constitutional: No fever, no chills. Eyes: No discharge. ENT: No sore throat. Cardiovascular: No chest pain, no palpitations. Respiratory: No cough, no shortness of breath. Gastrointestinal: No abdominal pain, no vomiting. Genitourinary: No difficulty Musculoskeletal: No back pain. Skin: No rashes. Neurological: No headache. crying (Shaista Wu) Physical Exam: General Appearance: Alert, crying Eyes: Pupils equal and round no pallor or injection. ENT, Mouth: Mucous membranes moist. Respiratory: There are no retractions, lungs are clear to auscultation. Cardiovascular: Regular rate and rhythm. Gastrointestinal: Abdomen is soft and nontender Neurological: No focal deficits Skin: Warm and dry, no rashes. Musculoskeletal: Neck is supple nontender. Extremities: symmetrical, full range of motion. Psychiatric: Patient is oriented X 3, some agitation with crying but cooperative. (Shaista Wu) Constitutional: Initial Vital Signs Temperature (C) 36.4 C 10/12/16 11:32 Heart Rate 104 H 10/12/16 11:32 Respiratory Rate 16 10/12/16 11:32 Blood Pressure 121/96 H 10/12/16 11:32 O2 Sat (%) 98 10/12/16 11:32 O2 Delivery Mode Room Air Allergies/Adverse Reactions: aripiprazole [From Abilify] Allergy (Verified 10/07/16 15:17) hydrocodone Allergy (Verified 10/07/16 15:17) NSAIDS (Non-Steroidal Anti-Inflamma Allergy (Verified 10/07/16 15:17) Home Medications: Medication Instructions Recorded Lisinopril [Zestril 40 mg (*)] 40 mg PO DAILY #4 tab 09/08/16 SUBOXONE 2 MG-0.5 MG TABLET 09/08/16 Clindamycin HCl [Clindamycin] 300 mg PO TID #30 cap 10/14/16 Medical Decision Making ED Course/Re-evaluation: Discussed ED plan of care: CBC, BMP, UA, urine drug screen , psych evaluation 1730: Patient resting calm, intermittent episodes of agitation crying. Patient states she would like to go home, discussed with or after psych evaluation that can be determined if she needs to be placed or she can be discharged 1830: Report handed off to Dr. Trivedi, patient stable (Shaista Wu) [id number]: This patient has been evaluated by mental health. Recommend inpatient psychiatric stabilization remain on M1 hold. Patient did binge drink alcohol and is on current [facility] protocol receiving p.o. Ativan. (Roderick Russo) I assumed care of the patient at 0700 awaiting placement. The patient will be turned over to Dr. Rasmussen at shift change pending psychiatric placement. (Barron Goodwin) I did not see this patient while she was in the emergency department. However her care was discussed with the nurse practitioner while the patient was in the department. I agree with treatment plan and management (Tayo Tirado) 11:00 p.m. care transferred to Dr. Roderick Russo. Awaiting psychiatric evaluation the morning. 5:00 a.m. the patient began complaining of dental pain of tooth 16. She states that she broke it off a few days ago. No visible abscess seen on my examination. I will start the patient on antibiotics and she is requesting ibuprofen. (Ayush Trivedi) Differential Diagnosis: Other differential diagnosis considered but not limited to psychosis, AMS due to drug intoxication, and alcohol withdrawal (Shaista Wu) Other Provider: Care the patient was assumed by myself at 7:00 a.m., at 11:40 a.m. patient has been accepted by Dr. Cruz at [facility]. Reason for transfer is inpatient psychiatric hospital bed not available at [facility]. (Rupert Montez) - Data Points Laboratory Results: Laboratory Results 10/12/16 12:42 10/12/16 12:42 Medications Given: Discontinued Medications Acetaminophen (Tylenol) 1,000 mg PO EDNOW ONE Stop: 10/14/16 05:09 Last Admin: 10/14/16 05:29 Dose: 1,000 mg Chlordiazepoxide HCl (Librium) 50 mg PO EDNOW ONE Stop: 10/13/16 04:43 Last Admin: 10/13/16 04:43 Dose: 50 mg Chlordiazepoxide HCl (Librium) 25 mg PO EDNOW ONE Stop: 10/13/16 14:28 Last Admin: 10/13/16 14:30 Dose: 25 mg Chlordiazepoxide HCl (Librium) 50 mg PO EDNOW ONE Stop: 10/13/16 19:20 Last Admin: 10/13/16 19:35 Dose: 50 mg Chlordiazepoxide HCl (Librium) 50 mg PO EDNOW ONE Stop: 10/14/16 11:00 Last Admin: 10/14/16 11:06 Dose: 50 mg Clindamycin (Clindamycin) 150 mg PO EDNOW ONE PRN Reason: Protocol Stop: 10/14/16 05:11 Last Admin: 10/14/16 05:30 Dose: 150 mg Lorazepam (Ativan) 1 mg PO EDNOW ONE Stop: 10/12/16 15:33 Last Admin: 10/12/16 15:35 Dose: 1 mg Lorazepam (Ativan) 2 mg PO EDNOW ONE Stop: 10/12/16 18:12 Last Admin: 10/12/16 18:27 Dose: 2 mg Lorazepam (Ativan) 1 mg PO EDNOW ONE Stop: 10/13/16 04:43 Last Admin: 10/13/16 04:43 Dose: 1 mg Lorazepam (Ativan) 1 mg PO EDNOW ONE Stop: 10/13/16 06:12 Last Admin: 10/13/16 06:12 Dose: 1 mg Lorazepam (Ativan) 1 mg PO EDNOW ONE Stop: 10/13/16 23:01 Last Admin: 10/13/16 23:06 Dose: 1 mg Lorazepam (Ativan) 2 mg PO EDNOW ONE Stop: 10/14/16 05:13 Last Admin: 10/14/16 05:30 Dose: 2 mg Ondansetron HCl (Zofran Odt) 4 mg PO EDNOW ONE Stop: 10/12/16 18:11 Last Admin: 10/12/16 18:27 Dose: 4 mg Ondansetron HCl (Zofran Odt) 4 mg PO EDNOW ONE Stop: 10/13/16 06:12 Last Admin: 10/13/16 06:12 Dose: 4 mg Trazodone HCl (Trazodone) 100 mg PO EDNOW ONE Stop: 10/13/16 21:21 Last Admin: 10/13/16 21:46 Dose: 100 mg Departure - Departure Disposition: Other Psych, Not [facility] Clinical Impression: Suicidal ideation, Dental infection Condition: Fair Referrals: [facility] [Other] - As per Instructions Prescriptions: Clindamycin HCl [Clindamycin] 300 mg PO TID #30 cap
[2016-10-12 12:49] LABS: % IMMATURE GRANULYOCYTES 0.5 % (0.0-1.1); ABSOLUTE IMMATURE GRANULOCYTES 0.02 10^3/uL (0.00-0.10); ADD DIFF? NO; ADD SCAN? NO; ATYPICAL LYMPHOCYTE FLAG 10 (0-99); FRAGMENT RBC FLAG 20 (0-99); HEMATOCRIT 37.2 % (38.0-47.0); HEMOGLOBIN 11.5 g/dL (12.6-16.3); LEFT SHIFT FLG 0 (0-99); LIPEMIA HEMOLYSIS FLAG 80 (0-99); MEAN CELL HEMOGLOBIN 25.3 pg (27.9-34.1); MEAN CELL HEMOGLOBIN CONCENTR. 30.9 g/dL (32.4-36.7); MEAN CELL VOLUME 81.8 fL (81.5-99.8); MEAN PLATELET VOLUME 9.1 fL (8.7-11.7); PLATELET CLUMPS FLAG 20 (0-99); PLATELET COUNT 237 10^3/uL (150-400); RED BLOOD CELL COUNT 4.55 10^6/uL (4.18-5.33); RED CELL DISTRIBUTION WIDTH 20.2 % (11.5-15.2)
[2016-10-12 12:50] LABS: ADD MORPH? NO
[2016-10-12 13:10] LABS: ANION GAP 19 mEq/L (8-16); CARBON DIOXIDE 21 mEq/l (22-31); CHLORIDE 109 mEq/L (97-110); CREATININE 0.7 mg/dL (0.6-1.0); GLOMERULAR FILTRATION RATE > 60; GLUCOSE 120 mg/dL (70-100); POTASSIUM 3.9 mEq/L (3.5-5.2); SALICYLATE < 1.0 mg/dL (2.0-20.0); SODIUM 149 mEq/L (134-144)
[2016-10-12 13:17] LABS: ETHANOL SERUM 397 mg/dL (0-10)
[2016-10-12] MEDS ORDERED: LORazepam 1 MG TAB ONE (15:32)
[2016-10-12] MEDS ORDERED: LORazepam 1 MG TAB PO ONE ×2 (15:32→18:11)
[2016-10-12] MEDS ORDERED: ONDANSETRON DISINTEGRATING 4 MG TAB PO ONE (18:10)
[2016-10-13] MEDS ORDERED: LORazepam 1 MG TAB ONE (04:24)
[2016-10-13] MEDS ORDERED: chlordiazePOXIDE 25 MG CAP ONE ×2 (04:36→14:11)
[2016-10-13] MEDS ORDERED: chlordiazePOXIDE 25 MG CAP PO ONE ×3 (04:42→19:19)
[2016-10-13] MEDS ORDERED: LORazepam 1 MG TAB PO ONE ×3 (04:42→23:00)
[2016-10-13] MEDS ORDERED: ONDANSETRON DISINTEGRATING 4 MG TAB ONE (06:07)
[2016-10-13] MEDS ORDERED: ONDANSETRON DISINTEGRATING 4 MG TAB PO ONE (06:11)
[2016-10-13] MEDS ORDERED: traZODone 50 MG TAB PO ONE (21:20)
[2016-10-13] MEDS ORDERED: LORazepam 2 MG/ML INJ IVP PRN (22:52)
[2016-10-14 00:37] VITALS: O2SAT 95
[2016-10-14 04:49] VITALS: RESP 18
[2016-10-14] MEDS ORDERED: ACETAMINOPHEN 500 MG TAB PO ONE (05:08)
[2016-10-14] MEDS ORDERED: CLINDAMYCIN 150 MG CAP PO ONE (05:10)
[2016-10-14] MEDS ORDERED: LORazepam 1 MG TAB PO ONE (05:12)
[2016-10-14] MEDS ORDERED: chlordiazePOXIDE 25 MG CAP PO ONE (10:59)
[2016-10-14 12:02] VITALS: BP 158/109; PULSE 100; TEMP 97.5
== END 2016-10-14 13:09 ==
DX: R45.851 Suicidal ideations (principal); K04.7 Periapical abscess without sinus; F17.200 Nicotine dependence, unspecified, uncomplicated
CPT/HCPCS: 80305; G0480

== ENCOUNTER 2016-11-02 15:58 | Emergency (ER) | payer MEDICAID ==
[2016-11-02 16:09] VITALS: BP 151/105; PULSE 98; RESP 16; TEMP 98.8; O2SAT 98
--- NOTE | 2016-11-02 16:12 | EDPHY ---
H & P Stated Complaint: ETOH+ states drank 1 pint vodka today, seen at [facility] yesterday for same Time Seen by Provider: 11/02/16 16:12 HPI/ROS: CHIEF COMPLAINT: Alcohol intoxication HISTORY OF PRESENT ILLNESS: The patient presents to the ED with alcohol intoxication. She is well known to our emergency department. The patient has a history of multiple ED visits for alcohol intoxication. [place] She apparently asked paramedics to bring her to [place] so that she could get help in finding her boyfriend/ex- who are also homeless. The patient continues to use Suboxone for her narcotic dependence. She last used that 3 days ago. Patient is unable to go to the [facility] secondary to that medication. The patient denies any complaints of acute abdominal pain, vomiting or dysuria. REVIEW OF SYSTEMS: A comprehensive 10 point review of systems is otherwise negative aside from elements mentioned in the history of present illness. Source: Patient Exam Limitations: No limitations - Personal History LMP (Females 10-55): Now Current Tetanus Diphtheria and Acellular Pertussis (TDAP): Yes - Medical/Surgical History Hx Asthma: No Hx Chronic Respiratory Disease: No Hx Diabetes: No Hx Cardiac Disease: No Hx Renal Disease: Yes Hx Cirrhosis: No Hx Alcoholism: Yes Hx HIV/AIDS: No Hx Splenectomy or Spleen Trauma: No Other PMH: HTN , KIDNEY STONES AND PYLO,opiate & meth addiction,pancreatitis, h pylori, chronic pain, alcoholism - Social History Smoking Status: Heavy smoker - Physical Exam Exam: General Appearance: Alert, alcohol on breath, no acute distress Head: Normocephalic atraumatic Eyes: Pupils equal and round no pallor or injection ENT, Mouth: Mucous membranes moist Respiratory: There are no retractions, lungs are clear to auscultation Cardiovascular: Regular rate and rhythm Gastrointestinal: Abdomen is soft and nontender, no masses, bowel sounds normal Neurological: 5/5 strength noted all 4 extremities Skin: No ecchymosis or evidence of trauma noted Musculoskeletal: Neck is supple nontender Extremities: symmetrical, full range of motion Psychiatric: Alert and oriented x3, denies suicidal or homicidal ideation, non agitated Constitutional: Initial Vital Signs Temperature (C) 37.1 C 11/02/16 16:06 Heart Rate 98 11/02/16 16:06 Respiratory Rate 16 11/02/16 16:06 Blood Pressure 151/105 H 11/02/16 16:06 O2 Sat (%) 98 11/02/16 16:06 O2 Delivery Mode Room Air Allergies/Adverse Reactions: aripiprazole [From Abilify] Allergy (Verified 10/07/16 15:17) hydrocodone Allergy (Verified 10/07/16 15:17) NSAIDS (Non-Steroidal Anti-Inflamma Allergy (Verified 10/07/16 15:17) Home Medications: Medication Instructions Recorded Lisinopril [Zestril 40 mg (*)] 40 mg PO DAILY #4 tab 09/08/16 SUBOXONE 2 MG-0.5 MG TABLET 09/08/16 Clindamycin HCl [Clindamycin] 300 mg PO TID #30 cap 10/14/16 Medical Decision Making ED Course/Re-evaluation: The patient presents to the ED with recurrent alcohol intoxication. She is currently homeless. I had a lengthy discussion with the patient about whether she should continue to use occasional Suboxone as a clearly this disqualifies her from getting services the [facility]. I have asked the patient to strongly consider not using Suboxone. Differential Diagnosis: Differential diagnosis considered includes alcohol intoxication, alcohol withdrawal, substance abuse, metabolic abnormality, occult trauma Departure - Departure Disposition: Home, Routine, Self-Care Clinical Impression: Alcoholic intoxication Condition: Good Instructions: Alcohol Intoxication (ED) Additional Instructions: 1. I strongly recommend you consider not using Suboxone into you have had a prolonged period of sobriety. Continued use of Suboxone limits your ability to receive care at the [facility]. 2. Please follow up with [facility] as needed to establish primary care. 3. Please return to the emergency department for any acute concerns. Referrals: [facility],. [Clinic] - As per Instructions
== END 2016-11-02 17:57 | disposition home or self-care (01) ==
LOC: EDUNIT#
DX: F10.129 Alcohol abuse with intoxication, unspecified (principal); I10 Essential (primary) hypertension; F17.200 Nicotine dependence, unspecified, uncomplicated

== ENCOUNTER 2016-11-02 20:37 | Emergency (ER) | payer MEDICAID ==
[2016-11-02 21:07] VITALS: TEMP 97.9
--- NOTE | 2016-11-02 21:21 | EDPHY ---
H & P Time Seen by Provider: 11/02/16 21:16 HPI/ROS: CHIEF COMPLAINT: Found down, alcohol intoxication HISTORY OF PRESENT ILLNESS: This patient is a 41-year-old female with history of alcohol abuse who presents to the Emergency Department via EMS after she was found down outside of [facility] this evening. She is well-known to this department for frequent visits related to alcohol abuse. She was seen in the ED earlier today for acute intoxication; she was discharged home when sober and in good condition. She admits to drinking 0.5 pint after discharge. At time of arrival, she states that she wishes to detox. She denies any focal medical complaints. She has been historically told she cannot go to the [facility] because of Suboxone use. She states that she stopped using Suboxone one week ago. REVIEW OF SYSTEMS: Constitutional: No fever, no chills Eyes: No visual changes ENT: No sore throat Respiratory: No cough, no shortness of breath Cardiac: No chest pain Gastrointestinal: no vomiting, no abdominal pain Genitourinary: no dysuria Musculoskeletal: No leg pain or swelling Skin: No rash Neurological: No headache Psychiatric: depression Past Medical/Surgical History: Alcoholism, opiate and meth addiction Pancreatitis Chronic pain Hypertension Kidney stones Social History: Alcohol abuse Heavy smoker Smoking Status: Heavy smoker Physical Exam: General Appearance: Alert, intoxicated, calm and cooperative Eyes: Pupils equal and round, conjunctival injection ENT, Mouth: Mucous membranes moist Neck: Normal inspection Respiratory: Lungs are clear to auscultation Cardiovascular: Regular rate and rhythm Gastrointestinal: Abdomen is soft and non-tender Neurological: A&O, nonfocal Skin: Warm and dry, no rash Extremities: Normal inspection Psychiatric: Mood and affect normal Constitutional: Initial Vital Signs Temperature (C) 36.6 C 11/02/16 20:59 Heart Rate 105 H 11/02/16 20:59 Respiratory Rate 20 11/02/16 20:59 Blood Pressure 157/109 H 11/02/16 20:59 O2 Sat (%) 92 11/02/16 20:59 O2 Delivery Mode Room Air Allergies/Adverse Reactions: aripiprazole [From Abilify] Allergy (Verified 10/07/16 15:17) hydrocodone Allergy (Verified 10/07/16 15:17) NSAIDS (Non-Steroidal Anti-Inflamma Allergy (Verified 10/07/16 15:17) Home Medications: Medication Instructions Recorded Lisinopril [Zestril 40 mg (*)] 40 mg PO DAILY #4 tab 09/08/16 SUBOXONE 2 MG-0.5 MG TABLET 09/08/16 Clindamycin HCl [Clindamycin] 300 mg PO TID #30 cap 10/14/16 Medical Decision Making ED Course/Re-evaluation: 41-year-old female presents requesting alcohol detox. She is seen frequently in this facility for alcohol abuse; she is apparently not welcome at the [facility] not only for Suboxone use but also for behavioral concerns. We will serially evaluate in the ED to determine appropriate next steps. 11pm--able to walk with a steady gait. To the [facility]. Departure - Departure Disposition: Home, Routine, Self-Care Clinical Impression: Polysubstance abuse Alcohol intoxication Qualifiers: Complication of substance-induced condition: uncomplicated Qualified Code(s): F10.920 - Alcohol use, unspecified with intoxication, uncomplicated Condition: Good Instructions: Abuse of Alcohol (ED), Polysubstance Abuse (ED) Additional Instructions: Return to the Emergency Department if you experience uncontrollable vomiting, shaking, seizure, confusion, or for other serious concerns. Referrals: [facility],. [Clinic] - As per Instructions Report Scribed for: Kaykay Hernandez Report Scribed by: Adenike Savage Date of Report: 11/02/16 Time of Report: 21:17 Physician Review and Approval Statement: 11/02/16 21:17 Portions of this note were transcribed by a medical office clerk. I personally performed a history, physical exam, medical decision making, and confirmed accuracy of information the transcribed note.
[2016-11-02 23:10] VITALS: RESP 18
[2016-11-03 01:53] VITALS: BP 135/84; PULSE 96; O2SAT 96
== END 2016-11-03 01:53 | disposition home or self-care (01) ==
LOC: EDUNIT#
DX: F19.10 Other psychoactive substance abuse, uncomplicated (principal); F10.920 Alcohol use, unspecified with intoxication, uncomplicated; I10 Essential (primary) hypertension; F17.200 Nicotine dependence, unspecified, uncomplicated